=== PATIENT | female | born 1990 | race African-American/Black ===

== ENCOUNTER 2016-09-21 15:18 | Emergency (ER) | payer OTHER ==
[~2016-09-21] VITALS: Ht 165.1 cm; Wt 117.9 kg
[~2016-09-21 15:18] MED LIST: ACETAMINOPHEN325 M1 PO; APAP500 PO; BENZOCAINE TP; COLACE100 MG PO; IBUPROFEN 800800 M1 PO; IRON325 PO; TUCKS MEDICATE1 EAC1
[2016-09-21 15:50] VITALS: BP 173/112
[2016-09-21] MEDS ORDERED: PHENERGAN 25 MG25 M1 PO (15:51)
[2016-09-21] MEDS ORDERED: MOBIC15 MG PO (15:51)
[2016-09-21] MEDS ORDERED: BACTRIM DS TAB1 EACH PO (15:51)
[2016-09-21] MEDS ORDERED: CHLORHEXADINE120 M1 TOP (15:51)
== END 2016-09-21 15:54 | disposition home or self-care (01) ==
LOC: ER 15:18
DX: L02.212 Cutaneous abscess of back [any part, except buttock and flank] (principal); Z86.14 Personal history of Methicillin resistant Staphylococcus aureus infection

== ENCOUNTER 2017-01-03 21:06 | Emergency (ER) | payer OTHER ==
[~2017-01-03] VITALS: Ht 165.1 cm; Wt 124.3 kg
[~2017-01-03 21:06] MED LIST changes: +BACTRIM DS TAB1 EACH PO; +CHLORHEXADINE120 M1 TOP; +MOBIC15 MG PO; +PHENERGAN 25 MG25 M1 PO
[2017-01-03 21:41] LABS: URINE BILIRUBIN NEGATIVE (Negative); URINE BLOOD 1+ (Negative); URINE COLOR YELLOW; URINE GLUCOSE-RANDOM* NEGATIVE (Negative); URINE KETONES NEGATIVE (Negative); URINE NITRITE NEGATIVE (Negative); URINE PROTEIN (DIPSTICK) NEGATIVE (Negative); URINE SPECIFIC GRAVITY >= 1.030 (1.003-1.035); URINE UROBILINOGEN 0.2 E.U./dl (0.2-1.0)
[2017-01-03 21:58] LABS: CASTS None Seen /LPF (None Seen); CRYSTALS None Seen /LPF (None Seen); SQUAMOUS >10 Many /LPF (0-3)
[2017-01-03 21:59] LABS: URINE WBC >25 Many /HPF (0-5)
[2017-01-03 22:00] LABS: BACTERIA 1-9 Few /HPF (None Seen); URINE RBC 3-10 Few /HPF (0-2)
[2017-01-03] MEDS ORDERED: MACROBID 100 M100 M1 PO (22:28)
[2017-01-03] MEDS ORDERED: FLAGYL500 MG PO (22:28)
[2017-01-03 23:10] VITALS: BP 158/89
[2017-01-07 21:09] LABS: CHLAMYDIA TRACHOMATIS-PCR Negative (Negative); NEISSERIA GONORRHEA-PCR Negative (Negative)
== END 2017-01-03 23:10 | disposition home or self-care (01) ==
LOC: ER 21:06
PROVIDERS: Physician Assistant
DX: A59.9 Trichomoniasis, unspecified (principal); N39.0 Urinary tract infection, site not specified; Z98.890 Other specified postprocedural states